=== PATIENT | female | born 1960 | race African-American/Black ===

== ENCOUNTER 2023-04-25 10:59 | Inpatient (IN) | payer OTHER ==
[~2023-04-25] VITALS: Ht 167.6 cm; Wt 142.0 kg
[2023-04-25 11:49] LABS: HEMATOCRIT. 43.5 % (36.0-48.0); HEMOGLOBIN. 14.1 g/dL (12.0-16.0); MEAN CORPUSCULAR HEMOGLOBIN 28.1 pg (28.0-32.0); MEAN CORPUSCULAR HGB CONC 32.4 g/dL (31.0-37.0); MEAN CORPUSCULAR VOLUME 86.6 fL (81.0-99.0); MEAN PLATELET VOLUME 9.1 fl (7.4-10.4); PLATELET 209 x1000/uL (130-400); RED BLOOD CELL COUNT 5.02 mill/uL (4.2-5.4); RED CELL DISTRIBUTION WIDTH 17.1 % (11.6-14.6); WHITE BLOOD COUNT 4.8 x1000/uL (4.5-11.0)
[2023-04-25 11:54] LABS: DIFFERENTIAL COMMENT 1
[2023-04-25 12:02] LABS: INR 1.2; PROTHROMBIN TIME 12.8 sec (9.6-11.0)
[2023-04-25 12:06] LABS: ALANINE AMINOTRANSFERASE 82 IU/L (10-49); ALBUMIN 3.7 g/dL (3.2-4.8); ASPARTATE AMINOTRANSFERASE 113 IU/L (<34); BILIRUBIN TOTAL 1.2 mg/dL (0.1-1.0); CALCIUM 8.7 mg/dL (8.7-10.4); CARBON DIOXIDE 33 mEq/L (21-32); CHLORIDE 102 mEq/L (98-107); CREATININE 1.5 mg/dL (0.6-1.0); POTASSIUM 3.4 mEq/L (3.5-5.1); PROTEIN TOTAL 6.2 g/dL (6.0-8.3); SODIUM 139 mEq/L (136-145); UREA NITROGEN BLOOD 25 mg/dL (9-23)
[2023-04-25 12:09] LABS: GLUCOSE 31 mg/dL (70-105)
[2023-04-25 12:10] LABS: TROPONIN I HIGH SENSITIVITY 49 ng/L (3.0-34)
[2023-04-25 12:15] LABS: BG BASE EXCESS 2.3 mmol/L (-2.0-2.0); BG CARBOXYHEMOGLOBIN 0.8 % (0.5-1.5); BG DEOXYHEMOGLOBIN 2.1 % (0.0-5.0); BG FRACTION INSPIRED OXYGEN 36; BG HCO3 ACT 28.6 mmol/L (22.0-26.0); BG METHEMOGLOBIN 0.1 % (0.0-1.5); BG OXYGEN SATURATION 97.9 % (92.0-98.5); BG PCO2 51.1 mmHg (35.0-45.0); BG PH 7.366 (7.350-7.450); BG PO2 108.7 mmHg (75.0-100.0); BG SAMPLE SITE LEFT RADIAL; BG TOTAL HEMOGLOBIN 14.1 g/dL (12.0-18.0); BG TOTAL RESPIRATORY RATE 20 b/min; BG VENT MODE NASAL CANNULA
[2023-04-25] MEDS: DEXTROSE 50% WATER 50ML SYRINGE IV ONE (12:16)
[2023-04-25] MEDS: IPRATROPIUM BROMIDE (0.02%) 0.5MG/2.5ML NEB HHN STA (12:57)
[2023-04-25] MEDS: ALBUTEROL (0.083%) 2.5MG/3ML NEB HHN STA (12:58)
[2023-04-25] MEDS: METHYLPREDNISOLONE SOD SUCC 125MG/2ML (ACT-O-VIAL) IV STA (13:00)
[2023-04-25] MEDS ORDERED: ENALAPRIL 2.5MG/2ML VIAL 2ML IV ONE (13:00)
[2023-04-25 13:02] VITALS: RESP 22
[2023-04-25] MEDS: ENALAPRIL 1.25MG/ML VIAL 1ML IV NR (13:04)
[2023-04-25 14:03] LABS: ANISOCYTOSIS 1+; PLATELET ESTIMATE NORMAL
[2023-04-25 14:32] LABS: CLARITY URINE CLEAR (CLEAR); COLOR URINE YELLOW (YELLOW); GLUCOSE URINE 2+ (NEGATIVE); KETONES URINE NEGATIVE (NEGATIVE); LEUKOCYTE ESTERASE URINE NEGATIVE (NEGATIVE); NITRITE URINE NEGATIVE (NEGATIVE); OCCULT BLOOD URINE TRACE (NEGATIVE); PH URINE 6.5 (4.5-8.0); PROTEIN URINE 1+ (NEGATIVE); SPECIFIC GRAVITY URINE 1.014 (1.005-1.030); UROBILINOGEN URINE 0.2 E.U./dL (0.2-1.0)
[2023-04-25 14:52] LABS: SQUAMOUS EPITHELIAL CELL URINE FEW /lpf (RARE/1+)
[2023-04-25 14:53] LABS: RBC URINE 0-2 /hpf (0-2); WBC URINE 0-2 /hpf (0-2)
[2023-04-25 14:56] LABS: BACTERIA URINE TRACE
[2023-04-25] MEDS: HYDRALAZINE 20MG/ML VIAL IV NR (15:14)
[2023-04-25] MEDS ORDERED: CLONIDINE 0.1MG TABLET PO PRN (15:45)
[2023-04-25] MEDS ORDERED: ONDANSETRON HCL 4MG/2ML INJ IV PRN (15:45)
[2023-04-25] MEDS ORDERED: DOCUSATE SODIUM 100MG CAPSULE PO PRN (15:45)
[2023-04-25] MEDS ORDERED: IPRATROPIUM/ALBUTEROL 0.5-3(2.5)MG/3ML NEB HHN PRN (15:45)
[2023-04-25] MEDS ORDERED: TRAMADOL 50MG TABLET PO PRN (15:45)
[2023-04-25] MEDS ORDERED: ACETAMINOPHEN 325MG TABLET PO PRN (15:45)
[2023-04-25] MEDS ORDERED: ENOXAPARIN 40MG/0.4ML SYR SUBCUT SCH (16:00)
[2023-04-25 16:17] VITALS: RESP 27
[2023-04-25] MEDS: METHYLPREDNISOLONE SOD SUCC 125MG/2ML (ACT-O-VIAL) IV SCH (16:24)
[2023-04-25] MEDS: LOSARTAN 50 MG TABLET PO SCH (16:25)
[2023-04-25] MEDS: DEXT 5%/0.45% NACL 1000ML 1,000 ML IV SCH (16:25)
[2023-04-25] MEDS: FUROSEMIDE 40MG/4ML VIAL IVP NR (16:36)
[2023-04-25] MEDS: PIPERACILLIN/TAZO 3.375G/50ML 50 ML IV SCH (17:16)
[2023-04-25] MEDS ORDERED: LABETALOL 5MG/ML SYR 20 MG/4 ML SYRINGE IV PRN (17:30)
[2023-04-25] MEDS: ENOXAPARIN 30MG/0.3ML SYR SUBCUT SCH (18:00)
[2023-04-25] MEDS: AMLODIPINE 5MG TABLET PO SCH (18:52)
[2023-04-25 20:00] VITALS: BP 173/136; PULSE 142; RESP 26; TEMP 97.9
[2023-04-25] MEDS: HYDRALAZINE HCL 25MG TABLET PO SCH (21:49)
[2023-04-25 22:00] VITALS: BP 153/106; PULSE 140; RESP 18
[2023-04-25 23:29] VITALS: BP 173/136; PULSE 142; RESP 19; TEMP 97.9
[2023-04-26] VITALS (15 sets, daily range): BP systolic 114–157; BP diastolic 58–133; PULSE 103–142; RESP 15–25; TEMP 97.4–98.2; O2SAT 98
[2023-04-26] MEDS: IPRATROPIUM/ALBUTEROL 0.5-3(2.5)MG/3ML NEB HHN SCH (01:04)
[2023-04-26 04:56] LABS: HEMATOCRIT. 42.5 % (36.0-48.0); HEMOGLOBIN. 13.6 g/dL (12.0-16.0); MEAN CORPUSCULAR HEMOGLOBIN 27.8 pg (28.0-32.0); MEAN CORPUSCULAR VOLUME 86.8 fL (81.0-99.0); MEAN PLATELET VOLUME 9.2 fl (7.4-10.4); PLATELET 210 x1000/uL (130-400); RED BLOOD CELL COUNT 4.89 mill/uL (4.2-5.4); RED CELL DISTRIBUTION WIDTH 17.1 % (11.6-14.6); WHITE BLOOD COUNT 4.2 x1000/uL (4.5-11.0)
[2023-04-26 05:07] LABS: ALANINE AMINOTRANSFERASE 67 IU/L (10-49); ALBUMIN 3.4 g/dL (3.2-4.8); ASPARTATE AMINOTRANSFERASE 78 IU/L (<34); BILIRUBIN TOTAL 0.9 mg/dL (0.1-1.0); CALCIUM 8.3 mg/dL (8.7-10.4); CARBON DIOXIDE 33 mEq/L (21-32); CHLORIDE 99 mEq/L (98-107); CHOLESTEROL 88 mg/dL (<200); CREATININE 1.6 mg/dL (0.6-1.0); GLUCOSE 196 mg/dL (70-105); HDL CHOLESTEROL 28 mg/dL (>65); LDL CHOLESTEROL 49 mg/dL (5-100); PHOSPHORUS 3.4 mg/dL (2.5-4.9); POTASSIUM 3.8 mEq/L (3.5-5.1); PROTEIN TOTAL 6.2 g/dL (6.0-8.3); SODIUM 138 mEq/L (136-145); TRIGLYCERIDE 69 mg/dL (0-150); UREA NITROGEN BLOOD 27 mg/dL (9-23)
[2023-04-26 05:09] LABS: TROPONIN I HIGH SENSITIVITY 70 ng/L (3.0-34)
[2023-04-26] MEDS: DILTIAZEM HCL 5MG/ML 5ML VIAL IV NR (05:44)
[2023-04-26 05:52] LABS: HEPATITIS B SURFACE ANTIGEN NEGATIVE (Negative); HEPATITIS C AB NON REACTIVE (Neg) (Negative)
[2023-04-26] MEDS ORDERED: DEXTROSE 50% WATER 50ML SYRINGE IV PRN (06:30)
[2023-04-26 06:31] LABS: DIFFERENTIAL COMMENT 1
[2023-04-26] MEDS: BLOOD SUGAR DIAGNOSTIC STRIP TEST SCH (07:30)
[2023-04-26 08:41] LABS: BG BASE EXCESS 5.4 mmol/L (-2.0-2.0); BG CARBOXYHEMOGLOBIN 0.4 % (0.5-1.5); BG DEOXYHEMOGLOBIN 4.3 % (0.0-5.0); BG FRACTION INSPIRED OXYGEN 32; BG HCO3 ACT 30.2 mmol/L (22.0-26.0); BG METHEMOGLOBIN 0.1 % (0.0-1.5); BG OXYGEN SATURATION 95.7 % (92.0-98.5); BG OXYHEMOGLOBIN 95.2 % (94.0-97.0); BG PCO2 44.9 mmHg (35.0-45.0); BG PH 7.446 (7.350-7.450); BG PO2 77.1 mmHg (75.0-100.0); BG SAMPLE SITE LEFT RADIAL; BG TOTAL HEMOGLOBIN 14.4 g/dL (12.0-18.0); BG VENT MODE NASAL CANNULA
[2023-04-26] MEDS: INSULIN LISPRO 100 UNITS/ML SUBCUT SCH (09:50)
[2023-04-26] MEDS ORDERED: METOPROLOL TARTRATE 5MG/5ML VIAL IV PRN (10:27)
[2023-04-26] MEDS ORDERED: NALOXONE HCL 0.4MG/ML VIAL IV PRN (12:45)
[2023-04-26] MEDS: PIPERACILLIN/TAZO 3.375G/50ML 50 ML IV SCH (14:14)
[2023-04-26] MEDS: MAGNESIUM 1 G PREMIX 100 ML IV NR (14:15)
[2023-04-26 20:00] LABS: ANISOCYTOSIS 1+; PLATELET ESTIMATE NORMAL
[2023-04-26] MEDS: GUAIFENESIN 200MG/10ML SUGAR FREE UDC PO PRN (23:02)
[2023-04-26] MEDS: METHYLPREDNISOLONE SOD SUCC 40MG/ML (ACT-O-VIAL) IV SCH (23:02)
[2023-04-27] VITALS (16 sets, daily range): BP systolic 108–163; BP diastolic 71–109; PULSE 89–143; RESP 18–29; TEMP 97.6–98.9; O2SAT 97
[2023-04-27] MEDS ORDERED: INSULIN LISPRO 100 UNITS/ML SUBCUT SCH (13:45)
[2023-04-27] MEDS: HYDRALAZINE HCL 100MG TABLET PO SCH (14:31)
[2023-04-27] MEDS: PIPERACILLIN/TAZO 3.375G/50ML 50 ML IV SCH (15:45)
== END 2023-04-27 22:38 | disposition short-term general hospital (02) | DRG 177 ==
LOC: ER 10:59 → 5EST 12:29 → EDBEDREQSVC 12:40 → EDBEDREQ 12:41 → EDBEDREQTM 12:41
PROVIDERS: ADMIT Hospitalist; ATTEND Hospitalist
PROC: 5A09357 Assistance with Respiratory Ventilation, Less than 24 Consecutive Hours, Continuous Positive Airway Pressure (ICD-10-PCS; principal; 2023-04-25)
DX: U07.1 COVID-19 (principal); I50.43 Acute on chronic combined systolic (congestive) and diastolic (congestive) heart failure; J96.01 Acute respiratory failure with hypoxia; E66.2 Morbid (severe) obesity with alveolar hypoventilation; N17.9 Acute kidney failure, unspecified; E87.4 Mixed disorder of acid-base balance; J44.1 Chronic obstructive pulmonary disease with (acute) exacerbation; Z68.43 Body mass index [BMI] 50.0-59.9, adult; D86.9 Sarcoidosis, unspecified; I11.0 Hypertensive heart disease with heart failure; I16.0 Hypertensive urgency; E11.649 Type 2 diabetes mellitus with hypoglycemia without coma; R74.01 Elevation of levels of liver transaminase levels; G90.8 Other disorders of autonomic nervous system; Z79.4 Long term (current) use of insulin
CPT/HCPCS: 36415; 36600; 71045; 80053; 80061; 81003; 82375; 82805; 82962; 83605; 83735; 83880; 84100; 84145; 84484; 85025; 86705; 86850; 86900; 87340; 87426; 87804; 93005; 93970; 94640; 94644; 94660; 99291; A6261; J0360; J1650; J1815; J1940; J2543; J2920; J2930; J3475; J3490